=== PATIENT | male | born 1945 | race Caucasian/White ===

== ENCOUNTER 2018-12-17 01:41 | Emergency (ER) | payer OTHER, SELFPAY ==
[2018-12-17 01:35] VITALS: BP 169/80; PULSE 91; TEMP 38.1; O2SAT 99
[2018-12-17 01:53] VITALS: TEMP 38
--- NOTE | 2018-12-17 01:56 | W.ED.GENAD ---
Discharge Plan Disposition Patient Disposition: SNF (LEVEL 1) [facility] Condition: Stable Discharge Details Chief Complaint: Nk/Back Pain Clinical Impression: Post-operative complication Primary Care Provider: Rah Lee ED Provider: Bg Weber Home Meds and New Rx's Prescriptions: Continued simethicone [Gas-X Extra Strength] 125 MG capsule 125 mg PO AC PRNRF: 0 tetracycline 500 MG capsule 3 cap PO DAILY RF: 0 Beano 1 EACH tablet 1 ea PO TID PRNRF: 0 acidophilus-pectin, citrus 1 CAP tablet 1 cap PO BID RF: 0 multivitamin 1 EACH capsule 1 tab PO DAILY RF: 0 polyethylene glycol 3350 [Miralax] 17 gram Powder In Packet 17 g PO BID RF: 0 sennosides-docusate sodium [Senna with Docusate Sodium] 8.6-50 mg Tablet 2 tab PO BID RF: 0 tramadol 50 mg tablet 50 mg PO BID PRNRF: 0 acetaminophen [Acetaminophen Extra Strength] 500 mg Tablet 1,000 mg PO TID RF: 0 ibuprofen 200 mg Tablet 400 mg PO Q6H PRNRF: 0 PreserVision AREDS-2 [id number] Capsule 1 tab PO BID RF: 0 Discharge Instructions Instructions: Back Pain (ED) Additional Instructions: You will be transported directly to [facility] where physical therapy will continue. If you notice any worsening of your symptoms, or any new symptoms such as vomiting, diarrhea, fever, chills, shortness of breath, chest pain, numbness, weakness, or fainting , please return immediately to the emergency department for reevaluation. Please follow up with your primary care provider as soon as possible for reassessment and reevaluation. As always, it was a pleasure participating in your medical care today. Referrals: Rah Lee [Primary Care Provider] - Discharge Data Discharge Date/Time-TO BE ENTERED AT DEPARTURE: 12/17/18 16:35 Medical Decision Making <Korey Hurtado MD - Last Filed: 12/17/18 20:01> Patient status post L4-L5 decompression. Here complaining of bilateral lower extremity pain that sounds like sciatica in nature. Low-grade fever here. Incision is clean dry and intact. No significant back tenderness. Lower extremities with normal neurovascular exam. There is no calf tenderness or swelling present. Lungs with a few rhonchi. Low-grade fever not overly worrisome. We will check a portable chest, CBC, urine. Will discuss with [facility]. 02:30 -spoke with orthopedic resident at [facility], Dr. Hernandez. Not overly concerned about low-grade fever. Reports most patients post orthopedic procedures have low-grade temps. Reassured by normal neurologic exam. No specific instructions. Will likely hold in ED for case management to see and probably place at [facility] for recovery. 03:30 -patient's urinalysis is negative. Chest x-ray per my read and radiology preliminary read negative. White count is normal. Patient will be held in ED to see case management in the morning for possible placement [facility]. <Bg Weber DO - Last Filed: 12/17/18 16:00> Patient will be discharged directly to [facility] as requested and directed by care management. The patient has remained hemodynamically stable here, he demonstrates no new focal neurologic deficits or other abnormalities. No concerning symptoms for cauda equina syndrome. Pain is well controlled, home medications have been administered. At time of transfer the patient was reassessed and continued to demonstrate current medical stability. No signs of acute respiratory distress requiring intubation, hemodynamic instability requiring pressor support, or rapidly declining mental status. The patient is stable for transport. HPI <Korey Hurtado MD - Last Filed: 12/17/18 20:01> General Mode of arrival: EMS. Date/Time Provider Initiated Documentation: 12/17/18 03:18. Limitations to Documentation: no limitations. Information obtained by: patient and old records reviewed. HPI Narrative: Patient presents to ED by ambulance with bilateral lower extremity pain. Patient is status post L4-L5 decompression at [facility] on the . He went home on the 17 after passing PT without issues. He has developed minimal back pain but is having lancing, sciatica type pain down both legs. He did take tramadol. He still has this pain intermittently. Depending on his position the pain is worse. At times he has no pain. His is unable to help care for him at home because of her medical problems. He has no numbness, tingling, weakness. He has no bladder or bowel problem. EMS was called and he was transported here for evaluation. Related Data Home Medications Medication Instructions Recorded Confirmed Beano 1 ea PO TID PRN 10/12/17 12/17/18 acidophilus-pectin, citrus 1 cap PO BID 10/12/17 12/17/18 multivitamin 1 tab PO DAILY 10/12/17 12/17/18 tetracycline 3 cap PO DAILY 10/12/17 12/17/18 simethicone [Gas-X Extra Strength] 125 mg PO AC PRN 10/14/17 12/17/18 PreserVision AREDS-2 1 tab PO BID 12/17/18 12/17/18 acetaminophen [Acetaminophen Extra 1,000 mg PO TID 12/17/18 12/17/18 Strength] ibuprofen 400 mg PO Q6H PRN 12/17/18 12/17/18 polyethylene glycol 3350 [Miralax] 17 g PO BID 12/17/18 12/17/18 sennosides-docusate sodium [Senna 2 tab PO BID 12/17/18 12/17/18 with Docusate Sodium] tramadol 50 mg PO BID PRN 12/17/18 12/17/18 Allergies Allergy/AdvReac Type Severity Reaction Status Date / Time cephalexin AdvReac Intermediate vomiting Unverified 12/17/18 01:41 keflex AdvReac Intermediate Diarrhea Uncoded 12/17/18 01:41 General Stated Complaint: Nk/Back Pain BIN: 3 Review of Systems <Korey Hurtado MD - Last Filed: 12/17/18 20:01> Review of Systems 06/14 Review of Systems completed and is negative except as stated above in HPI (Systems reviewed: Const, Eyes, ENT, Resp, CV, GI, , MSK, Skin, Neuro) PFSH <Korey Hurtado MD - Last Filed: 12/17/18 20:01> Medical History Adult acne (Chronic) Surgical History Previous back surgery (Acute) Social History Smoking/Tobacco Use Status: Former Tobacco Use Alcohol Intake: former Drug use: Never Do you feel safe at home: Yes Do you feel safe in your relationship?: Yes Exam <Korey Hurtado MD - Last Filed: 12/17/18 20:01> Narrative Exam Narrative: Vitals: Low-grade fever here of 100.6. Hypertensive to some degree. Not tachycardic. Normal pulse oximetry. Const: WDWN elderly male in NAD. HEENT: NC/AT. Normal facial exam. Eyes: Normal conjunctiva and sclera. Neck: Supple. Trachea midline. Lungs: Normal respiratory effort. Lungs with a few scattered rhonchi. Cor: RRR without murmur/gallop. GI: Soft. NT/ND. No guarding or rebound. Back: No back tenderness or swelling. Incision is C/D/I. Neuro: A+O x 3. CN grossly in tact. No focal deficits. BLE strength is 5/5. Sensory is in tact. No saddle anesthesia. Good rectal tone. Normal BLE reflexes. Ext: No C/C/E. No deformity or tenderness. No calf tenderness. Skin: Warm and dry without rash or erythema. Course <Korey Hurtado MD - Last Filed: 12/17/18 20:01> Vital Signs Temperature 100.6 F H 12/17/18 01:35 Pulse 91 H 12/17/18 01:35 Blood Pressure 169/80 H 12/17/18 01:35 Pulse Oximetry 99 12/17/18 01:35 Temperature 100.4 F H 12/17/18 01:53 Temperature Source Skin 12/17/18 01:53 Pulse 91 H 12/17/18 01:35 Respiratory Effort Non-Labored 12/17/18 01:50 Blood Pressure 169/80 H 12/17/18 01:35 Blood Pressure Position Sitting 12/17/18 01:35 Pulse Oximetry 99 12/17/18 01:35 Oxygen Delivery Method Room Air 12/17/18 01:35 Oxygen Flow Rate 0 12/17/18 01:35 Pain Level 3 12/17/18 01:35 Comment 12/17/18 01:35 Sign Out <Korey Hurtado MD - Last Filed: 12/17/18 20:01> Sign Out Data: Sign Out Comment: Patient pending placement in ECF to rehab from back surgery. I did speak with care management this morning. Patient signed out to Dr. Tia Yeung updated by Korey Hurtado MD at 12/17/18 07:52
[2018-12-17 02:03] LABS: Bilirubin Negative (Negative); Blood Small (Negative); Clarity Clear; Glucose Negative (Negative); Ketones Negative (Negative); Leukocyte Esterase Negative (Negative); Nitrite Negative (Negative); Specific Gravity 1.025 (1.005-1.025); Urobilinogen 0.2 EU/dL (Up TO 0.2)
[2018-12-17 02:15] LABS: Bacteria Negative HPF (Negative); C & S Indicated? No; Casts Negative LPF (Negative); Crystals Negative HPF (Negative); Epithelial Cells Negative HPF (Negative); Mucus Negative (Negative); WBC 0-2 HPF (0-5)
--- NOTE | 2018-12-17 02:17 | DI.RAD_ITS ---
SYMPTOM/DIAGNOSIS: POST OP, FEVER PORTABLE AP CHEST: The heart is not enlarged. The lungs appear grossly clear and well expanded. CONCLUSION: No evidence of acute disease.
--- NOTE | 2018-12-17 02:19 | ED.GENADUL_ITS ---
Discharge Plan Disposition Patient Disposition: SNF (LEVEL 1) [facility] Condition: Stable Discharge Details Chief Complaint: Nk/Back Pain Clinical Impression: Post-operative complication Primary Care Provider: Rah Lee ED Provider: Bg Weber Home Meds and New Rx's Prescriptions: Continued simethicone [Gas-X Extra Strength] 125 MG capsule 125 mg PO AC PRNRF: 0 tetracycline 500 MG capsule 3 cap PO DAILY RF: 0 Beano 1 EACH tablet 1 ea PO TID PRNRF: 0 acidophilus-pectin, citrus 1 CAP tablet 1 cap PO BID RF: 0 multivitamin 1 EACH capsule 1 tab PO DAILY RF: 0 polyethylene glycol 3350 [Miralax] 17 gram Powder In Packet 17 g PO BID RF: 0 sennosides-docusate sodium [Senna with Docusate Sodium] 8.6-50 mg Tablet 2 tab PO BID RF: 0 tramadol 50 mg tablet 50 mg PO BID PRNRF: 0 acetaminophen [Acetaminophen Extra Strength] 500 mg Tablet 1,000 mg PO TID RF: 0 ibuprofen 200 mg Tablet 400 mg PO Q6H PRNRF: 0 PreserVision AREDS-2 [id number] Capsule 1 tab PO BID RF: 0 Discharge Instructions Instructions: Back Pain (ED) Additional Instructions: You will be transported directly to [facility] where physical therapy will continue. If you notice any worsening of your symptoms, or any new symptoms such as vomiting, diarrhea, fever, chills, shortness of breath, chest pain, numbness, weakness, or fainting , please return immediately to the emergency department for reevaluation. Please follow up with your primary care provider as soon as possible for reassessment and reevaluation. As always, it was a pleasure participating in your medical care today. Referrals: Rah Lee [Primary Care Provider] - Discharge Data Discharge Date/Time-TO BE ENTERED AT DEPARTURE: 12/17/18 16:35 Medical Decision Making <Korey Hurtado MD - Last Filed: 12/17/18 20:01> Patient status post L4-L5 decompression. Here complaining of bilateral lower extremity pain that sounds like sciatica in nature. Low-grade fever here. Incision is clean dry and intact. No significant back tenderness. Lower extremities with normal neurovascular exam. There is no calf tenderness or swelling present. Lungs with a few rhonchi. Low-grade fever not overly worrisome. We will check a portable chest, CBC, urine. Will discuss with [facility]. 02:30 -spoke with orthopedic resident at [facility], Dr. Hernandez. Not overly concerned about low-grade fever. Reports most patients post orthopedic procedures have low-grade temps. Reassured by normal neurologic exam. No specific instructions. Will likely hold in ED for case management to see and probably place at [facility] for recovery. 03:30 -patient's urinalysis is negative. Chest x-ray per my read and radiology preliminary read negative. White count is normal. Patient will be held in ED to see case management in the morning for possible placement [facility]. <Bg Weber DO - Last Filed: 12/17/18 16:00> Patient will be discharged directly to [facility] as requested and directed by care management. The patient has remained hemodynamically stable here, he demonstrates no new focal neurologic deficits or other abnormalities. No concerning symptoms for cauda equina syndrome. Pain is well controlled, home medications have been administered. At time of transfer the patient was reassessed and continued to demonstrate current medical stability. No signs of acute respiratory distress requiring intubation, hemodynamic instability requiring pressor support, or rapidly declining mental status. The patient is stable for transport. HPI <Korey Hurtado MD - Last Filed: 12/17/18 20:01> General Mode of arrival: EMS . Date/Time Provider Initiated Documentation: 12/17/18 03:18 . Limitations to Documentation: no limitations . Information obtained by: patient and old records reviewed . HPI Narrative: Patient presents to ED by ambulance with bilateral lower extremity pain. Patient is status post L4-L5 decompression at [facility] on the . He went home on the 17 after passing PT without issues. He has developed minimal back pain but is having lancing, sciatica type pain down both legs. He did take tramadol. He still has this pain intermittently. Depending on his position the pain is worse. At times he has no pain. His is unable to help care for him at home because of her medical problems. He has no numbness, tingling, weakness. He has no bladder or bowel problem. EMS was called and he was transported here for evaluation. Related Data Home Medications Medication Instructions Recorded Confirmed Beano 1 ea PO TID PRN 10/12/17 12/17/18 acidophilus-pectin, citrus 1 cap PO BID 10/12/17 12/17/18 multivitamin 1 tab PO DAILY 10/12/17 12/17/18 tetracycline 3 cap PO DAILY 10/12/17 12/17/18 simethicone [Gas-X Extra Strength] 125 mg PO AC PRN 10/14/17 12/17/18 PreserVision AREDS-2 1 tab PO BID 12/17/18 12/17/18 acetaminophen [Acetaminophen Extra 1,000 mg PO TID 12/17/18 12/17/18 Strength] ibuprofen 400 mg PO Q6H PRN 12/17/18 12/17/18 polyethylene glycol 3350 [Miralax] 17 g PO BID 12/17/18 12/17/18 sennosides-docusate sodium [Senna 2 tab PO BID 12/17/18 12/17/18 with Docusate Sodium] tramadol 50 mg PO BID PRN 12/17/18 12/17/18 Allergies Allergy/AdvReac Type Severity Reaction Status Date / Time cephalexin AdvReac Intermediate vomiting Unverified 12/17/18 01:41 keflex AdvReac Intermediate Diarrhea Uncoded 12/17/18 01:41 General Stated Complaint: Nk/Back Pain BIN: 3 Review of Systems <Korey Hurtado MD - Last Filed: 12/17/18 20:01> Review of Systems 06/14 Review of Systems completed and is negative except as stated above in HPI (Systems reviewed: Const, Eyes, ENT, Resp, CV, GI, , MSK, Skin, Neuro) PFSH <Korey Hurtado MD - Last Filed: 12/17/18 20:01> Medical History Adult acne (Chronic) Surgical History Previous back surgery (Acute) Social History Smoking/Tobacco Use Status: Former Tobacco Use Alcohol Intake: former Drug use: Never Do you feel safe at home: Yes Do you feel safe in your relationship?: Yes Exam <Korey Hurtado MD - Last Filed: 12/17/18 20:01> Narrative Exam Narrative: Vitals: Low-grade fever here of 100.6. Hypertensive to some degree. Not tachycardic. Normal pulse oximetry. Const: WDWN elderly male in NAD. HEENT: NC/AT. Normal facial exam. Eyes: Normal conjunctiva and sclera. Neck: Supple. Trachea midline. Lungs: Normal respiratory effort. Lungs with a few scattered rhonchi. Cor: RRR without murmur/gallop. GI: Soft. NT/ND. No guarding or rebound. Back: No back tenderness or swelling. Incision is C/D/I. Neuro: A+O x 3. CN grossly in tact. No focal deficits. BLE strength is 5/5. Sensory is in tact. No saddle anesthesia. Good rectal tone. Normal BLE reflexes. Ext: No C/C/E. No deformity or tenderness. No calf tenderness. Skin: Warm and dry without rash or erythema. Course <Korey Hurtado MD - Last Filed: 12/17/18 20:01> Vital Signs Temperature 100.6 F H 12/17/18 01:35 Pulse 91 H 12/17/18 01:35 Blood Pressure 169/80 H 12/17/18 01:35 Pulse Oximetry 99 12/17/18 01:35 Temperature 100.4 F H 12/17/18 01:53 Temperature Source Skin 12/17/18 01:53 Pulse 91 H 12/17/18 01:35 Respiratory Effort Non-Labored 12/17/18 01:50 Blood Pressure 169/80 H 12/17/18 01:35 Blood Pressure Position Sitting 12/17/18 01:35 Pulse Oximetry 99 12/17/18 01:35 Oxygen Delivery Method Room Air 12/17/18 01:35 Oxygen Flow Rate 0 12/17/18 01:35 Pain Level 3 12/17/18 01:35 Comment 12/17/18 01:35 Sign Out <Korey Hurtado MD - Last Filed: 12/17/18 20:01> Sign Out Data: Sign Out Comment: Patient pending placement in ECF to rehab from back surgery. I did speak with care management this morning. Patient signed out to Dr. Tia Yeung updated by Korey Hurtado MD at 12/17/18 07:52
[2018-12-17 02:28] LABS: Abs Immature Grans 0.02 k/cumm (0.0-0.09); Absolute Basophil Count 0.01 k/cumm (0.0-0.2); Absolute Eosinophil Count 0.09 k/cumm (0.0-0.7); Absolute Lymphocyte Count 1.15 k/cumm (1.2-3.4); Absolute Monocyte Count 0.89 k/cumm (0.11-0.7); Absolute Neutrophil Count 5.72 k/cumm (1.2-6.7); Basophils % 0.1; Eosinophils % 1.1; HCT 43.3 % (40.0-50.0); HGB 14.2 g/dL (13.5-17.5); Immature Grans % 0.3; Lymphocytes % 14.6; Mean Corp. HGB Concentration 32.8 g/dL (32.0-36.0); Mean Corpuscular Hemoglobin 31.1 pg (27.0-33.0); Mean Platelet Volume 9.9 fL (8.0-11.0); Monocytes % 11.3; Neutrophils % 72.6; Platelet Count 194 x1000/uL (130-400); RBC 4.56 m/cumm (4.50-6.00); RBC Distribution Width 14.9 % (11.8-14.1); White Blood Cell Count 7.88 k/cumm (4.4-10.8)
--- NOTE | 2018-12-17 03:33 | DI.VRAD_ITS ---
EXAM: XR Chest, 1 View EXAM DATE/TIME: 12/17/2018 1:56 AM CLINICAL HISTORY: 73 years old, male; Signs and symptoms; Fever; Additional info: PT is 1 day S/P l4-5 surgery with fever TECHNIQUE: Imaging protocol: XR of the chest, 1 view. COMPARISON: CR CHEST 2 VIEWS PA,LAT 10/12/2017 4:54 PM FINDINGS: Lungs: Clear lungs. Pleural space: No pneumothorax. No sizable pleural effusion. Heart/Mediastinum: No cardiomegaly. Bones/joints: Unremarkable. IMPRESSION: Clear lungs. Dictated and Authenticated by: Afshin Castro MD. Ordering:MARY Nair MD
[2018-12-17 05:36] VITALS: TEMP 37.4
[2018-12-17] MEDS: HYDROcodone 5/Acetaminophen 325 TAB PO (08:38)
--- NOTE | 2018-12-17 11:50 | PT.INIE ---
Date of service: 12/17/18 Time of Service: 11:20 PT Notes Inpatient Physical Therapy Evaluation Date: 12/17/18 Referring Doctor: Dr. Bg Weber PT Orders: PT CONSULT: Inability to walk Precautions: Standard Patient Profile/Admitting Diagnosis: Patient admitted to the emergency department via [facility] due to inability to walk. Patient is 2 days status post L4-5 spinal decompression, and [place] [facility] [place] 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 He typically ambulates without an assistive device. Equipment Owned/DME: FW W Subjective: Patient reports that he underwent L4-5 spinal decompression 2 days ago. He states that while at [facility], he was able to ambulate the big loop and was essentially pain-free. He was discharged home early yesterday, and states that he was extremely fatigued after transport. He sat in his chair for several hours, then attempted to stand, and was unable to get up. He tried taking his pain meds, and reports well managed pain while sitting in the chair. He attempted to get up again, and again was unsuccessful. He alerted EMS, and was transported here to the emergency department. He describes immediate bilateral lower extremity pain upon transitioning to standing. States that he does not feel confident he could put any weight through his legs. He describes a shooting pain down the backs of his legs to the level of the toes bilaterally. Denies bowel or bladder changes, numbness or tingling, or sensation of weakness to the limbs. Objective: General Observation: Resting in bed in the emergency department. Patient is in no acute distress. Mental Status: A and O x3 Pain: 0/10 at rest. Moderate with movement ROM: Right Upper Extremity: WFL Left Upper Extremity: WFL Right Lower Extremity: SLR allow 60 degrees, limited by posterior buttock pain, without radiation to the limbs. Hip and knee range of motion are WFL. Left Lower Extremity: SLR allow 60 degrees, limited by posterior buttock pain, without radiation to the limbs. Hip and knee range of motion are WFL. Strength: Right Upper Extremity: WFL Left Upper Extremity: WFL Right Lower Extremity: Lower extremity strength is grossly 3/5 or greater for hip flexion, quad strength, hamstring strength. Ankle dorsiflexion is 5/5. EHL 5/5. Left Lower Extremity: Lower extremity strength is grossly 3/5 or greater for hip flexion, quad strength, hamstring strength. Ankle dorsiflexion is 5/5. EHL 5/5. Sensation: Sensation is intact throughout the lower extremities Bed Mobility/Transfers: Supine?sit: Mod assist of 1, with requirement of max cues for log rolling technique Sit to supine: Mod assist of 1, again requiring max cues for technique Sit to stand: Unable on first attempt due to severity of pain. With cues for transverse abdominal activation and breathing techniques, patient is able to stand with min assist of 1. Stand to sit: Min assist of 1 Gait: Patient ambulates 6 feet with FW W and contact-guard. He reports being symptom free and standing position. Balance: Static Sitting: Good Dynamic Sitting: Good Static Standing: fair Dynamic Standing: fair Informed Consent/Education: Patient instructed in purpose of PT consult and plan of care. Patient was instructed in TrA activation and effective transfer techniques. Assessment: Patient is a 73 year old male referred to physical therapy services with the diagnosis of inability to ambulate. Patient presents with clinical signs and symptoms consistent with post-operative pain. He is not demonstrating any red flag symptoms. He is now 2 days s/p spinal decompression and is failing at home due to limitations in ability to independently transfer. At this point, patient is unable to safely return home independently, and will benefit from rehabilitation in an inpatient setting. He currently demonstrates by the following impairment level findings: 1. Decreased safety with transfers 2. Poorly managed pain Impairments are contributing to the following functional limitations: 1. Inability to independently transfer 2. Unable to independently perform bed mobility Patient is assessed as Moderate 44804 complexity based on the following: History: 73-year-old male, 2 days status post lumbar spine decompression, failing at home due to inability to independently transfer Examination: Functional limitations as noted above Presentation: evolving Decision Making: Moderate complexity Plan of Care/Treatment Plan: 1 time consult only. DISCHARGE RECOMMENDATIONS: Recommend DC to detention facility for ongoing PT intervention and rehabilitation following spinal decompression. TREATMENT CODE/TIME: 39135 ([id number]) Meenu Lewis, PT, DPT [facility]
--- NOTE | 2018-12-17 11:53 | IN_ITS ---
Date of service: 12/17/18 Time of Service: 11:20 PT Notes Inpatient Physical Therapy Evaluation Date: 12/17/18 Referring Doctor: Dr. Bg Weber PT Orders: PT CONSULT: Inability to walk Precautions: Standard Patient Profile/Admitting Diagnosis: Patient admitted to the emergency department via [facility] due to inability to walk. Patient is 2 days status post L4-5 spinal decompression, and returned [place] [facility] [place]. 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 He typically ambulates without an assistive device. Equipment Owned/DME: FW W Subjective: Patient reports that he underwent L4-5 spinal decompression 2 days ago. He states that while at [facility], he was able to ambulate the big loop and was essentially pain-free. He was discharged home early yesterday, and states that he was extremely fatigued after transport. He sat in his chair for several hours, then attempted to stand, and was unable to get up. He tried taking his pain meds, and reports well managed pain while sitting in the chair. He attempted to get up again, and again was unsuccessful. He alerted EMS, and was transported here to the emergency department. He describes immediate bilateral lower extremity pain upon transitioning to standing. States that he does not feel confident he could put any weight through his legs. He describes a shooting pain down the backs of his legs to the level of the toes bilaterally. Denies bowel or bladder changes, numbness or tingling, or sensation of weakness to the limbs. Objective: General Observation: Resting in bed in the emergency department. Patient is in no acute distress. Mental Status: A and O x3 Pain: 0/10 at rest. Moderate with movement ROM: Right Upper Extremity: WFL Left Upper Extremity: WFL Right Lower Extremity: SLR allow 60 degrees, limited by posterior buttock pain, without radiation to the limbs. Hip and knee range of motion are WFL. Left Lower Extremity: SLR allow 60 degrees, limited by posterior buttock pain, without radiation to the limbs. Hip and knee range of motion are WFL. Strength: Right Upper Extremity: WFL Left Upper Extremity: WFL Right Lower Extremity: Lower extremity strength is grossly 3/5 or greater for hip flexion, quad strength, hamstring strength. Ankle dorsiflexion is 5/5. EHL 5/5. Left Lower Extremity: Lower extremity strength is grossly 3/5 or greater for hip flexion, quad strength, hamstring strength. Ankle dorsiflexion is 5/5. EHL 5/5. Sensation: Sensation is intact throughout the lower extremities Bed Mobility/Transfers: Supine?sit: Mod assist of 1, with requirement of max cues for log rolling technique Sit to supine: Mod assist of 1, again requiring max cues for technique Sit to stand: Unable on first attempt due to severity of pain. With cues for transverse abdominal activation and breathing techniques, patient is able to stand with min assist of 1. Stand to sit: Min assist of 1 Gait: Patient ambulates 6 feet with FW W and contact-guard. He reports being symptom free and standing position. Balance: Static Sitting: Good Dynamic Sitting: Good Static Standing: fair Dynamic Standing: fair Informed Consent/Education: Patient instructed in purpose of PT consult and plan of care. Patient was instructed in TrA activation and effective transfer techniques. Assessment: Patient is a 73 year old male referred to physical therapy services with the diagnosis of inability to ambulate. Patient presents with clinical signs and symptoms consistent with post-operative pain. He is not demonstrating any red flag symptoms. He is now 2 days s/p spinal decompression and is failing at home due to limitations in ability to independently transfer. At this point, patient is unable to safely return home independently, and will benefit from rehabilitation in an inpatient setting. He currently demonstrates by the following impairment level findings: 1. Decreased safety with transfers 2. Poorly managed pain Impairments are contributing to the following functional limitations: 1. Inability to independently transfer 2. Unable to independently perform bed mobility Patient is assessed as Moderate 07329 complexity based on the following: History: 73-year-old male, 2 days status post lumbar spine decompression, failing at home due to inability to independently transfer Examination: Functional limitations as noted above Presentation: evolving Decision Making: Moderate complexity Plan of Care/Treatment Plan: 1 time consult only. DISCHARGE RECOMMENDATIONS: Recommend DC to retirement facility for ongoing PT intervention and rehabilitation following spinal decompression. TREATMENT CODE/TIME: 79959 ([id number]) Meenu Lewis, PT, DPT [facility]
--- NOTE | 2018-12-17 12:59 | PDOC.ERCMPRO ---
Care Management Progress Note CM consulted for possible SNF placement. CM spoke to [facility] regarding discharge plan for Eduardo. Per their reports, Eduardo was ambulating independently and doing stairs prior to his discharge. CM met with Eduardo who reported he had been doing well until later in the evening last night when he was unable to ambulate due to increased pain. dEuardo wanted to know the cause of his increased pain prior to going to rehab, but verbalized wanting to go to rehab and reported he would be agreeable to the [facility] or [facility]. CM faxed referrals with insurance information and [facility] [place] summary provided by ER Licensed Club ManagerJamar Correia to the [facility]. CM also requested PT consult and discussed case with Avani CALL who reported Eduardo would require S/T rehab. [facility] called to state he could not return home. CM assured Cee that she would be updated with discharge planning. The [facility] called to report they were unable to offer a bed. [facility] and [facility] called at 1545 to report they had rec'd authorization for Eduardo's stay. CM coordinated transport with [facility], provided discharge forms to ER and supported coordinated discharge. CM notified [facility] .
--- NOTE | 2018-12-17 13:20 | NUR.NOTE ---
pt provided with meal tray Nursing Note:
[2018-12-17 14:13] VITALS: BP 129/73; PULSE 99; RESP 14; TEMP 38.2; O2SAT 99
[2018-12-17 16:14] VITALS: BP 148/81; PULSE 88; RESP 14; TEMP 37.7; O2SAT 100
[2018-12-17] MEDS: Acetaminophen 500 MG TAB 1000 MG PO (16:19)
[2018-12-17] MEDS: traMADol 50 MG TAB PO (16:19)
--- NOTE | 2018-12-17 16:20 | CMPROGNOTE_ITS ---
Care Management Progress Note CM consulted for possible SNF placement. CM spoke to [facility] regarding discharge plan for Eduardo. Per their reports, Eduardo was ambulating independently and doing stairs prior to his discharge. CM met with Eduardo who reported he had been doing well until later in the evening last night when he was unable to ambulate due to increased pain. Eduardo wanted to know the cause of his increased pain prior to going to rehab, but verbalized wanting to go to rehab and reported he would be agreeable to the [facility] or [facility]. CM faxed referrals with insurance information and [facility] discharge summary provided by ER Major Donor CoordinatorJamar Correia to the [facility] and [facility]. CM also requested PT consult and discussed case with Avani CALL who reported Eduardo would require S/T rehab. [facility] called to state he could not return home. CM assured Cee that she would be updated with discharge planning. The [facility] called to report they were unable to offer a bed. [facility] and [facility] called at 1545 to report they had rec'd authorization for Eduardo's stay. CM coordinated transport with [facility], provided discharge forms to ER and supported coordinated discharge. CM notified [facility] .
[2018-12-17 16:35] VITALS: BP 148/81; PULSE 88; RESP 14; TEMP 37.7; O2SAT 100
== END 2018-12-17 16:35 | disposition skilled nursing facility (03) ==
PROVIDERS: Emergency Medicine; Emergency Provider Student in an Organized Health Care Education/Training Program; PCP Nurse Practitioner Family
DX: G89.28 Other chronic postprocedural pain (principal)
CPT/HCPCS: 97162; 99284; 71045; 81003; 81015; 85025

== ENCOUNTER 2019-07-13 22:49 | Emergency (ER) | payer OTHER, SELFPAY ==
[2019-07-13 22:54] VITALS: BP 158/87; PULSE 87; RESP 20; TEMP 36.5; O2SAT 100
--- NOTE | 2019-07-13 23:00 | ED.GENADUL_ITS ---
Discharge Plan Disposition Patient Disposition: HOME Condition: Good Discharge Details Chief Complaint: HeadInjury Clinical Impression: Laceration of eyebrow, left, Fall due to ice or snow Primary Care Provider: Rah Lee ED Provider: Korey Hurtdao and Lizandro Rx's Prescriptions: Continued simethicone [Gas-X Extra Strength] 125 MG capsule 125 mg PO AC PRNRF: 0 tetracycline 500 MG capsule 3 cap PO DAILY RF: 0 Beano 1 EACH tablet 1 ea PO TID PRNRF: 0 acidophilus-pectin, citrus 1 CAP tablet 1 cap PO BID RF: 0 multivitamin 1 EACH capsule 1 tab PO DAILY RF: 0 polyethylene glycol 3350 [Miralax] 17 gram Powder In Packet 17 g PO BID RF: 0 sennosides-docusate sodium [Senna with Docusate Sodium] 8.6-50 mg Tablet 2 tab PO BID RF: 0 tramadol 50 mg tablet 50 mg PO BID PRNRF: 0 acetaminophen [Acetaminophen Extra Strength] 500 mg Tablet 1,000 mg PO TID RF: 0 ibuprofen 200 mg Tablet 400 mg PO Q6H PRNRF: 0 PreserVision AREDS-2 [id number] jr-hove-dh-mg Capsule 1 tab PO BID RF: 0 Discharge Instructions Instructions: Facial Laceration (ED) Additional Instructions: Apply ice few times a day for the next couple days to help bring swelling down. Keep the laceration clean and dry. Watch for signs of infection. Return to ED for suture removal in 5 to 7 days. Return to ED sooner if evidence of infection, severe headache, vomiting, confusion, lethargy, other concerns or problems. Referrals: [facility] [Provider Group] Medical Decision Making Patient here with eyebrow laceration status post fall. He did strike his head but had no loss of consciousness, is not on blood thinners, has normal neurologic exam and does not need imaging. Spine is cleared clinically. Eyebrow laceration is a burst/stellate type on the left. Please see procedure note. Two 6-0 Prolene sutures placed with good approximation. Patient instructed on wound care and head injury. Return here in 5 to 7 days for suture removal. Discharged in good condition. HPI General Mode of arrival: ambulatory . Date/Time Provider Initiated Documentation: 07/13/19 22:59 . Limitations to Documentation: no limitations . Information obtained by: patient and RN notes reviewed . HPI Narrative: Patient presents to ED with a laceration to left eyebrow. Patient slipped and fell on the ice outside. He caught most of his fall but his head did end up striking the ground. He did not have loss of consciousness. He is not on blood thinners. He denies headache. He sustained a laceration to the eyebrow which is why he is here. He denies any neck or back pain. He has no neurologic symptoms. He has abrasions to his right hand from the fall but no pain. Related Data Home Medications Medication Instructions Recorded Confirmed Beano 1 ea PO TID PRN 10/12/17 12/17/18 acidophilus-pectin, citrus 1 cap PO BID 10/12/17 12/17/18 multivitamin 1 tab PO DAILY 10/12/17 12/17/18 tetracycline 3 cap PO DAILY 10/12/17 12/17/18 simethicone [Gas-X Extra Strength] 125 mg PO AC PRN 10/14/17 12/17/18 PreserVision AREDS-2 1 tab PO BID 12/17/18 12/17/18 acetaminophen [Acetaminophen Extra 1,000 mg PO TID 12/17/18 12/17/18 Strength] ibuprofen 400 mg PO Q6H PRN 12/17/18 12/17/18 polyethylene glycol 3350 [Miralax] 17 g PO BID 12/17/18 12/17/18 sennosides-docusate sodium [Senna 2 tab PO BID 12/17/18 12/17/18 with Docusate Sodium] tramadol 50 mg PO BID PRN 12/17/18 12/17/18 Allergies Allergy/AdvReac Type Severity Reaction Status Date / Time cephalexin AdvReac Intermediate vomiting Unverified 12/17/18 01:41 keflex AdvReac Intermediate Diarrhea Uncoded 12/17/18 01:41 General BIN: 3 Review of Systems Narrative: As documented in HPI otherwise negative as below. Const: no fever, chills, weakness Resp: no cough, SOB, pleuritic pain CV: no CP, diaphoresis, edema, syncope GI: no abdominal pain, nausea, vomiting, diarrhea Neuro: no headache, numbness, focal weakness, confusion PFSH Social History Smoking/Tobacco Use Status: Former Tobacco Use Alcohol Intake: former Drug use: Never Do you feel safe at home: Yes Do you feel safe in your relationship?: Yes Exam Narrative Exam Narrative: Vitals: Afebrile. Mildly elevated blood pressure otherwise normal vitals and normal room air pulse ox. Const: WDWN elderly male in NAD. HEENT: Burst laceration/stellate lac to left eyebrow with hematoma. No bony tenderness. Eyes: PERRL and EOMI. Neck: Supple. Trachea midline. No c-spine tenderness. Lungs: Normal respiratory effort. Lungs are clear. No chest wall tenderness. Cor: RRR without murmur/gallop. Good radial pulses. Back: No spinal tenderness. Neuro: A+O x 3. CN II - XII grossly in tact. Normal strength, sensation, speech, gait, mentation. Ext: No deformity or tenderness. Bruise noted to the thenar eminence of right hand. Procedures Laceration Laceration 1: Site: face Side (If applicable): left Size (cm): 0.5 Description: stellate Depth: simple, single layer Local Anesthetic: Lidocaine 1% and with Epi Amount of anesthesia used (mL): 2 Pre-repair: wound explored, irrigated extensively and deep structures intact Skin layer closed with: other (prolene) Size (cm): 6-0 Technique: simple, interrupted (2)
--- NOTE | 2019-07-13 23:22 | NUR.NOTE ---
2315: Laceration above left eye cleaned with NS and hibiclens. Patient tolerated well. No active bleeding at this time. Nursing Note:
--- NOTE | 2019-07-13 23:25 | NUR.NOTE ---
2325: Dr in to repair laceration. Nursing Note:
== END 2019-07-13 23:30 | disposition home or self-care (01) ==
PROVIDERS: Emergency Provider Emergency Medicine; PCP Nurse Practitioner Family
DX: S01.81XA Laceration without foreign body of other part of head, initial encounter (principal); W00.0XXA Fall on same level due to ice and snow, initial encounter
CPT/HCPCS: 12011

== ENCOUNTER 2019-07-23 12:45 | Emergency (ER) | payer OTHER, SELFPAY ==
[2019-07-23 12:50] VITALS: BP 132/77; PULSE 76; RESP 14; TEMP 36.1; O2SAT 98
--- NOTE | 2019-07-23 13:09 | ED.GENADUL_ITS ---
Discharge Plan Disposition Patient Disposition: HOME Condition: Good Discharge Details Chief Complaint: SutureRem Clinical Impression: Visit for suture removal Primary Care Provider: Rah Lee ED Provider: Ria Tyson Home Meds and New Rx's Prescriptions: No Action Macular Health Formula 5-1-7.5 mg Capsule 1 cap PO DAILY RF: 0 tetracycline 500 MG capsule 2 cap PO DAILY RF: 0 Beano 1 EACH tablet 1 ea PO TID PRNRF: 0 acidophilus-pectin, citrus 1 CAP tablet 1 cap PO BID RF: 0 multivitamin 1 EACH capsule 1 tab PO DAILY RF: 0 PreserVision AREDS-2 [phone] oh-khvf-hf-mg Capsule 1 tab PO BID RF: 0 Discharge Instructions Instructions: Stitches Removal (ED) Additional Instructions: Wash gently with soap and water once or twice daily. Apply topical anabolic ointment to the wound. Observe for any sign of infection. Return for any worsening or concerns sooner if needed Discharge Data Discharge Date/Time-TO BE ENTERED AT DEPARTURE: 07/23/19 13:20 Medical Decision Making Patient presents for suture removal, [address] and left eyebrow. Removed without complication. Wound care discussed. The patient was stable and requested discharge. Prior to discharge, my usual and customary return precautions were reviewed with the patient - this included follow-up instructions and reasons to return to the Emergency Department if conditions worsens, does not improve as expected, or other new concerns arise. HPI General Date/Time Provider Initiated Documentation: 07/23/19 13:04 . HPI Narrative: Patient presents for suture removal from left eyebrow area. Sutures in place for 10 days. No complaints Related Data Home Medications Medication Instructions Recorded Confirmed Beano 1 ea PO TID PRN 10/12/17 07/23/19 acidophilus-pectin, citrus 1 cap PO BID 10/12/17 07/23/19 multivitamin 1 tab PO DAILY 10/12/17 07/23/19 tetracycline 2 cap PO DAILY 10/12/17 07/23/19 PreserVision AREDS-2 1 tab PO BID 12/17/18 07/23/19 [id number] 1 cap PO DAILY 07/23/19 07/23/19 [Macular Health Formula] Allergies Allergy/AdvReac Type Severity Reaction Status Date / Time cephalexin AdvReac Intermediate vomiting Unverified 07/23/19 12:53 keflex AdvReac Intermediate Diarrhea Uncoded 07/23/19 12:53 General Stated Complaint: SutureRem BIN: 5 Review of Systems All systems reviewed & are unremarkable except as noted in HPI and below Integumentary/Breasts Skin/Breast: Denies rash and Denies wounds PFSH Social History Smoking/Tobacco Use Status: Former Tobacco Use Alcohol Intake: former Drug use: Never Do you feel safe at home: Yes Do you feel safe in your relationship?: Yes Exam Narrative Exam Narrative: CONST: Healthy appearing patient, in no acute distress. Well hydrated. Alert and alert. HENMT: Head nomocephalic, normal to inspection. Atraumatic. Hearing grossly normal. [address] in the left lateral eyebrow area. Wound well approximated. Mild scabbing present. No sign of secondary infection SKIN: Normal. Dry. No rashes. NEURO: Alert and awake. Speech clear. PSYCH: Normal affect. Cooperative. Course Vital Signs Vital signs: Vital Signs Temperature 36.1 C L 07/23/19 12:50 Pulse 76 07/23/19 12:50 Respiratory Rate 14 07/23/19 12:50 Blood Pressure 132/77 07/23/19 12:50 Pulse Oximetry 98 07/23/19 12:50 Temperature 36.1 C L 07/23/19 12:50 Temperature Source Skin 07/23/19 12:50 Pulse 76 07/23/19 12:50 Respiratory Rate 14 07/23/19 12:50 Respiratory Effort Non-Labored 07/23/19 12:50 Blood Pressure 132/77 07/23/19 12:50 Blood Pressure Position Sitting 07/23/19 12:50 Pulse Oximetry 98 07/23/19 12:50 Oxygen Delivery Method Room Air 07/23/19 12:50 Oxygen Flow Rate 0 07/23/19 12:50 Pain Level 0 07/23/19 12:50 Procedures Other Description: 2 sutures removed with scalpel and forceps from the left eyebrow area without complication.
[2019-07-23 13:20] VITALS: BP 132/77; PULSE 76; RESP 14; TEMP 36.1; O2SAT 98
== END 2019-07-23 13:20 | disposition home or self-care (01) ==
PROVIDERS: Emergency Provider Physician Assistant; PCP Nurse Practitioner Family
DX: S01.81XD Laceration without foreign body of other part of head, subsequent encounter (principal); X58.XXXD Exposure to other specified factors, subsequent encounter; Z48.02 Encounter for removal of sutures

== ENCOUNTER 2022-01-30 00:59 | Emergency (ER) | payer MEDICARE, SELFPAY ==
--- NOTE | 2022-01-30 01:00 | W.ED.GENAD ---
Discharge Plan Disposition Patient Disposition: HOME Condition: Improving Discharge Details Clinical Impression: Diarrhea Primary Care Provider: Rah Lee ED Provider: Sloane Rhodes Home Meds and New Rx's Prescriptions: Continued Macular Health Formula 5-1-7.5 mg Capsule 1 cap PO DAILY tetracycline 500 MG capsule 2 cap PO DAILY Beano 1 EACH tablet 1 ea PO TID PRN acidophilus-pectin, citrus 1 CAP tablet 1 cap PO BID multivitamin 1 EACH capsule 1 tab PO DAILY PreserVision AREDS-2 [id number] ca-flue-er-mg Capsule 1 tab PO BID Discharge Instructions Instructions: Acute Diarrhea (ED) Additional Instructions: Your lab work today is reassuring and shows no evidence of acute concerning or significant findings. You were negative for the flu and COVID-19. It is suspected that your symptoms are potentially due to a foodborne illness or another type of viral illness. Drink plenty of fluids and get plenty of rest. Alternate tylenol and motrin as needed and directed for pain. You were given a stool sample kit for home if you have any further episodes of diarrhea. Return the stool sample to the hospital as directed. Follow-up with your primary care doctor in 1 week. Return to the emergency department with any worsening or new concerning symptoms. Discharge Data Discharge Physician: Sloane Rhodes Medical Decision Making 0120 -- 76-year-old male with a history of sebaceous cysts on chronic doxycycline for the past 20 years, colitis who presents for 1 episode of diarrhea followed by paresthesias in both hands that started 1 hour ago after he found out he ate mushrooms from 1 year ago. He admits to occasional nausea but denies any fever, abdominal pain, chest pain or urinary symptoms. Heart rate mildly elevated at 101. Remainder vitals within normal limits. Patient appears anxious. Upon quick assessment in the waiting room, patient hyperventilating. Suspect his bilateral hand paresthesias are secondary to hyperventilation and blowing out carbon dioxide. He is awake and alert and oriented x3. His abdomen is soft and nontender. Suspect gastroenteritis. History and presentation does not appear consistent with CVA, ACS, PE or dissection. Will place an IV, bolus IV fluids, screening labs, urinalysis, Fluvid, and give IV zofran. Pt drove himself here and unable to get a ride home so will hold on anxiolytic at this time. 0240 --labs reviewed and unremarkable. Normal white blood cell count. Normal electrolytes. Lipase normal. Urinalysis negative for infection. Fluvid negative. Patient reassessed and he feels much better and would like to go home. He was given a stool sample kit to use as directed if needed. Advised to follow up with the primary care doctor for re-evaluation. Usual and customary return precautions given prior to discharge. Medical Records Medical records reviewed: Yes I reviewed the patient's medical records. Lab Data Lab results reviewed: Yes I reviewed the patient's lab results. Labs: Laboratory Tests Range/Units 01/30/22 01/30/22 01/30/22 01:40 01:40 01:40 WBC (4.4-10.8) 10^3/uL 8.07 RBC (4.36-5.78) 10^6/uL 4.99 Hgb (13.5-17.5) g/dL 15.2 Hct (40.0-50.0) % 46.1 MCV (80-95) fL 92 MCH (27.0-33.0) pg 30.5 MCHC (32.0-36.0) % 33.0 RDW (11.8-14.1) % 14.4 H Plt Count (130-400) 10^3/uL 295 MPV (8.0-11.0) fL 10.0 Immature Gran % 0.2 Neutrophils % 62.7 Lymphocytes % 25.5 Monocytes % 9.7 Eosinophils % 1.4 Basophils % 0.5 Nucleated RBC % (0.0-0.3) % 0.0 Absolute Neutrophils (1.2-6.7) 10^3/uL 5.06 Absolute Lymphocytes (1.2-3.4) 10^3/uL 2.06 Absolute Monocytes (0.1-0.8) 10^3/uL 0.78 Absolute Eosinophils (0.0-0.7) 10^3/uL 0.11 Absolute Basophils (0.0-0.2) 10^3/uL 0.04 Sodium (136-145) mmol/L 142 Potassium (3.5-5.1) mmol/L 3.8 Chloride (98-107) mmol/L 105 Carbon Dioxide (21.0-32.0) mmol/L 28.2 Anion Gap (3-11) mmol/L 8.8 BUN (7-18) mg/dL 23 H Creatinine (0.70-1.30) mg/dL 1.3 Estimated GFR/1.73 m2 (mL/min/1.73m2) 53.96 Glucose (74-106) mg/dL 153 H Calcium (8.5-10.1) mg/dL 9.3 Total Bilirubin (0.2-1.0) mg/dL 0.6 AST (15-37) U/L 32 ALT (16-63) U/L 36 Alkaline Phosphatase (46-116) U/L 127 H Total Protein (6.4-8.2) g/dL 6.4 Albumin (3.4-5.0) g/dL 3.2 L Lipase (73-393) U/L 133 Urine Color (Yellow) Urine Clarity (Clear) Urine pH (5-8) Ur Specific [place] (1.005-1.025) Urine Protein (Negative) mg/dL Urine Ketones (Negative) mg/dL Urine Blood (Negative) Urine Nitrite (Negative) Urine Bilirubin (Negative) Urine Urobilinogen (Up TO 0.2) EU/dL Ur Leukocyte Esterase (Negative) Urine Glucose (Negative) mg/dL COVID-19 Source Nasopharynx SARS-CoV-2 (PCR) (Negative) Negative Influenza Type A (PCR) (Negative) Negative Influenza Type B (PCR) (Negative) Negative RSV (PCR) (Negative) Negative Range/Units 01/30/22 02:22 WBC (4.4-10.8) 10^3/uL RBC (4.36-5.78) 10^6/uL Hgb (13.5-17.5) g/dL Hct (40.0-50.0) % MCV (80-95) fL MCH (27.0-33.0) pg MCHC (32.0-36.0) % RDW (11.8-14.1) % Plt Count (130-400) 10^3/uL MPV (8.0-11.0) fL Immature Gran % Neutrophils % Lymphocytes % Monocytes % Eosinophils % Basophils % Nucleated RBC % (0.0-0.3) % Absolute Neutrophils (1.2-6.7) 10^3/uL Absolute Lymphocytes (1.2-3.4) 10^3/uL Absolute Monocytes (0.1-0.8) 10^3/uL Absolute Eosinophils (0.0-0.7) 10^3/uL Absolute Basophils (0.0-0.2) 10^3/uL Sodium (136-145) mmol/L Potassium (3.5-5.1) mmol/L Chloride (98-107) mmol/L Carbon Dioxide (21.0-32.0) mmol/L Anion Gap (3-11) mmol/L BUN (7-18) mg/dL Creatinine (0.70-1.30) mg/dL Estimated GFR/1.73 m2 (mL/min/1.73m2) Glucose (74-106) mg/dL Calcium (8.5-10.1) mg/dL Total Bilirubin (0.2-1.0) mg/dL AST (15-37) U/L ALT (16-63) U/L Alkaline Phosphatase (46-116) U/L Total Protein (6.4-8.2) g/dL Albumin (3.4-5.0) g/dL Lipase (73-393) U/L Urine Color (Yellow) Yellow Urine Clarity (Clear) Clear Urine pH (5-8) 8.0 Ur Specific [place] (1.005-1.025) 1.020 Urine Protein (Negative) mg/dL Negative Urine Ketones (Negative) mg/dL Trace H Urine Blood (Negative) Negative Urine Nitrite (Negative) Negative Urine Bilirubin (Negative) Negative Urine Urobilinogen (Up TO 0.2) EU/dL 0.2 Ur Leukocyte Esterase (Negative) Negative Urine Glucose (Negative) mg/dL Negative COVID-19 Source SARS-CoV-2 (PCR) (Negative) Influenza Type A (PCR) (Negative) Influenza Type B (PCR) (Negative) RSV (PCR) (Negative) HPI General Mode of arrival: ambulatory. Date/Time Provider Initiated Documentation: 01/30/22 01:00. Limitations to Documentation: no limitations. Information obtained by: patient. HPI Narrative: Patient is a 76-year-old male with a history of sebaceous cyst on chronic tetracycline for the past 20 years, colitis who presents to the emergency department with 1 episode of diarrhea that occurred 1 hour prior to arrival. Patient states he ate mushrooms that were from 1 year ago at 3 PM this afternoon and states he became nervous when he saw the expiration date. Patient states the bowel movement was initially soft and then watery and brown. He denies any rectal bleeding. He does admit to nausea but denies any fever, vomiting, abdominal pain or urinary symptoms. He states he came to the emergency department because he became nervous when he developed tingling in his hands. He denies any chest pain. Related Data Home Medications Medication Instructions Recorded Confirmed acidophilus 25 million 1 cap PO BID 10/12/17 07/23/19 cell-pectin, citrus 100 mg tablet [id number]-reykypxyhaqud (Beano 1 ea PO TID PRN 10/12/17 07/23/19 tablet) multivitamin 1 tab PO DAILY 10/12/17 07/23/19 tetracycline 500 mg capsule 2 cap PO DAILY 10/12/17 01/30/22 vit C 250 mg-vit E 90 mg-zinc 40 1 tab PO BID 12/17/18 07/23/19 mg-copper 1 nh-klqkms-cigsmv capsule (PreserVision AREDS-2) lhejcazg-uwj-hmvdqi 5 mg-zeaxanth 1 cap PO DAILY 07/23/19 07/23/19 1 mg-bilberry 7.5 mg-herbal capsule (Girls Guide To Health Formula) Allergies Allergy/AdvReac Type Severity Reaction Status Date / Time cephalexin AdvReac Intermediate vomiting Unverified 01/30/22 01:22 keflex AdvReac Intermediate Diarrhea Uncoded 01/30/22 01:22 General Stated Complaint: Nausea/Vomit/Diar BIN: 3 Review of Systems All systems reviewed & are unremarkable except as noted in HPI and below Constitutional Constitutional: Denies chills, Denies excessive sweating, Denies fatigue, Denies fever(s), Denies weakness and Denies weight loss Eyes Eyes: Reports system reviewed and no additional complaints, except as documented and Denies blurry vision ENT Ears, Nose, Mouth, and Throat: Denies vertigo, Denies dizziness, Denies otalgia, Denies nasal congestion, Denies sore throat and Denies throat swelling Cardiovascular Cardiovascular: Denies chest pain, Denies syncope, Denies rapid heart rate and Denies dyspnea Respiratory Respiratory: Denies chest congestion, Denies cough, Denies pain on inspiration and Denies dyspnea Gastrointestinal Gastrointestinal: Denies abdominal pain, Reports diarrhea, Reports nausea and Denies vomiting Genitourinary Genitourinary: Denies hematuria, Denies dysuria and Denies flank pain Musculoskeletal Musculoskeletal: Denies back pain and Denies joint swelling Integumentary/Breasts Skin/Breast: Denies lesions and Denies rash Neurologic Neurologic: Denies behavioral changes, Denies confusion, Denies vertigo, Denies dizziness, Denies syncope, Denies localized weakness and Denies weakness Psychiatric Psychiatric: Denies behavioral changes, Denies confusion and Denies depression Endocrine Endocrine: Denies excessive sweating and Denies fatigue Hematologic/Lymphatic Hematologic/Lymphatic: Denies easy bruising and Denies lymphadenopathy Allergic/Immunologic Allergic/Immunologic: Denies throat swelling PFSH All Active Problems (Updated 01/30/22 @ 02:49 by Sloane Rhodes DO) Diarrhea (Acute) Medical History (Updated 01/30/22 @ 02:49 by Sloane Rhodes DO) Adult acne Surgical History Previous back surgery Social History Smoking/Tobacco Use Status: Former Tobacco Use Smoking risk assessment performed?: Yes Alcohol Intake: former Drug use: Never Substance use type: does not use Do you feel safe at home: Yes Do you feel safe in your relationship?: Yes Exam Const General: cooperative and anxious Orientation: alert, awake and oriented x3 HENMT Head: normal to inspection Ears: hearing grossly normal bilaterally, external ears normal and TM's normal bilaterally General nose exam: external nose normal Face and sinus: normal facial exam Mouth: oral mucosae normal Teeth and gingiva: dentition normal Throat: posterior oropharynx normal Eyes General: appearance normal, both eyes and all related structures Eyelids: eyelids normal Pupils: PERRL EOM: EOM intact bilaterally Neck Neck: normal visual inspection Lymphatic: no lymphadenopathy noted Chest Chest: normal inspection of the chest Resp Effort & Inspection: normal respiratory effort and able to speak in complete sentences Auscultation: clear to auscultation bilaterally Cardio Rate: regular rate Rhythm: regular rhythm GI Inspection: normal to inspection Palpation: soft, not firm, no guarding, no hepatosplenomegaly, no masses and nontender Auscultation: normal bowel sounds Back/Spine/Pelvis Back: no CVA tenderness Skin General skin exam: no rashes or lesions noted Neuro General: patient alert and patient awake Cognition: normal cognition Speech: speech normal Gait: normal gait Motor: muscle tone normal throughout Sensory Exam: no sensory deficits noted Extrem General: normal to inspection, full ROM and capillary refill normal Psych Appearance: grossly normal Mental Status: mental status grossly normal Speech and Movement: speech and movement normal Affect: normal affect Thought Process: normal
[2022-01-30 01:14] VITALS: BP 112/64; PULSE 101; RESP 16; TEMP 36.2; O2SAT 100
[2022-01-30 01:18] VITALS: RESP 16
[2022-01-30] MEDS: Normal Saline 500 ML IV (01:47)
[2022-01-30] MEDS: Ondansetron 4 MG/2 ML VIAL IVP (01:47)
[2022-01-30 01:52] LABS: Abs Immature Grans 0.02 10^3/uL (0.0-0.06); Absolute Basophil Count 0.04 10^3/uL (0.0-0.2); Absolute Eosinophil Count 0.11 10^3/uL (0.0-0.7); Absolute Lymphocyte Count 2.06 10^3/uL (1.2-3.4); Absolute Monocyte Count 0.78 10^3/uL (0.1-0.8); Absolute Neutrophil Count 5.06 10^3/uL (1.2-6.7); Basophils % 0.5; Eosinophils % 1.4; HCT 46.1 % (40.0-50.0); HGB 15.2 g/dL (13.5-17.5); Immature Grans % 0.2; Lymphocytes % 25.5; MCH 30.5 pg (27.0-33.0); MCV 92 fL (80-95); Monocytes % 9.7; Neutrophils % 62.7; Platelet Count 295 10^3/uL (130-400); RBC 4.99 10^6/uL (4.36-5.78); RDW 14.4 % (11.8-14.1); RDW-SD 48.7 fL; WBC 8.07 10^3/uL (4.4-10.8)
[2022-01-30 02:06] LABS: ALT 36 U/L (16-63); AST 32 U/L (15-37); Albumin 3.2 g/dL (3.4-5.0); Alkaline Phosphatase 127 U/L (46-116); Anion Gap 8.8 mmol/L (3-11); BUN 23 mg/dL (7-18); Bilirubin, Total 0.6 mg/dL (0.2-1.0); CO2 28.2 mmol/L (21.0-32.0); CREATININE 1.3 mg/dL (0.70-1.30); Calcium 9.3 mg/dL (8.5-10.1); Chloride 105 mmol/L (98-107); Estimated GFR 53.96 (mL/min/1.73m2); Glucose 153 mg/dL (74-106); Lipase 133 U/L (73-393); Potassium 3.8 mmol/L (3.5-5.1); Sodium 142 mmol/L (136-145); Total Protein 6.4 g/dL (6.4-8.2)
[2022-01-30 02:25] LABS: COVID-19 PCR Negative (Negative); Influenza A PCR Negative (Negative); Influenza B PCR Negative (Negative); RSV PCR Negative (Negative)
[2022-01-30 02:31] LABS: Source Nasopharynx
[2022-01-30 02:35] LABS: Bilirubin Negative (Negative); Blood Negative (Negative); Clarity Clear (Clear); Glucose Negative (Negative); Ketones Trace mg/dL (Negative); Leukocyte Esterase Negative (Negative); Nitrite Negative (Negative); Urobilinogen 0.2 EU/dL (Up TO 0.2)
[2022-01-30 03:28] VITALS: BP 113/65; PULSE 94; RESP 18; O2SAT 98
--- NOTE | 2022-01-30 14:42 | NUR.NOTE ---
Phyllis from lab called to say that stool sample submitted by patient was formed. she is unable to do a c dif test on the speciman. order has been cancelled.
== END 2022-01-30 03:30 | disposition home or self-care (01) ==
PROVIDERS: Emergency Provider Physician Assistant; PCP Nurse Practitioner Family
DX: R19.7 Diarrhea, unspecified (principal)
CPT/HCPCS: 80053; 83690; 87637; 96361; 96374; 99283; 99284; 81003; 85025; J2405

== ENCOUNTER 2022-01-30 18:55 | Outpatient (REF) | payer MEDICARE, SELFPAY ==
[2022-01-31 11:57] LABS: Campylobacter PCR Negative (Negative); Salmonella PCR Negative (Negative); Shiga Toxin PCR Negative (Negative); Shigella/Enteroinvasive Ecoli Negative (Negative)
== END 2022-01-30 18:56 | disposition home or self-care (01) ==
LOC: LBN 18:55
PROVIDERS: PCP Nurse Practitioner Family; Visit Provider Physician Assistant
DX: R19.7 Diarrhea, unspecified (principal)
CPT/HCPCS: 87493; 87505